=== PATIENT | female | born 1985 | race Caucasian/White ===

== ENCOUNTER → 2016-09-05 | Outpatient (CLI) | payer BC ==
--- NOTE | 2016-09-05 13:59 | RADIOLOGY REPORT (SQ) ---
EXAM DESCRIPTION: CHEST PA/LATERAL COMPLETED DATE/TIME: 09/05/2016 1:00 pm REASON FOR STUDY: NONSPECIFIC REACTION TO SKIN TEST W/O ACTIVE TUBER COMPARISON: None. EXAM PARAMETERS: NUMBER OF VIEWS: two views TECHNIQUE: Digital Frontal and Lateral radiographic views of the chest acquired. RADIATION DOSE: NA LIMITATIONS: none FINDINGS: LUNGS AND PLEURA: No opacities, masses or pneumothorax. No pleural effusion. MEDIASTINUM AND HILAR STRUCTURES: No masses or contour abnormalities. HEART AND VASCULAR STRUCTURES: Heart normal size. No evidence for failure. BONES: No acute findings. HARDWARE: None in the chest. OTHER: No other significant finding. IMPRESSION: NO SIGNIFICANT RADIOGRAPHIC FINDING IN THE CHEST. TECHNICAL DOCUMENTATION: JOB ID: [id number] [employer]- All Rights Reserved
== END ==
LOC: OD 12:41
PROVIDERS: ATTEND Physician Assistant
DX: R76.11 Nonspecific reaction to tuberculin skin test without active tuberculosis (principal)
CPT/HCPCS: 71020

== ENCOUNTER 2018-07-21 14:44 | Outpatient (CLI) | payer BC ==
--- NOTE | 2018-07-21 15:23 | Non Stress Test Report ---
Non Stress Test Datetime Report Generated by CPN: 07/21/2018 15:22 DEMOGRAPHIC EGA NST: 35.3 INDICATION Indication for Study: Ordered by Provider; Other VITAL SIGNS Temperature - NST: 98.1 Pulse - NST: 76 RESP - NST: 15 MONITORING Time on Monitor: 07/21/2018 14:52 Time off Monitor: 07/21/2018 15:12 NST Duration: 20 NST INTERVENTIONS NST Interventions: PO Hydration Physician Notified NST: C. Oquendo, CNM BABY A: [id number] BABY A Movement : Present Contraction Frequency : x1 Accelerations : 15X15 Decelerations : None Variability : Moderate 6-25bpm NST Review: Meets Criteria for Reactive NST NST Review and Verified By : kathleen arechiga rn NST Results: Reactive NST REPORT Report Trigger: Send Report
== END 2018-07-21 15:22 | disposition home or self-care (01) ==
LOC: LC 14:44
PROVIDERS: ATTEND Obstetrics & Gynecology Gynecology
PROC: 4A1HXCZ Monitoring of Products of Conception, Cardiac Rate, External Approach (ICD-10-PCS; principal; 2018-07-21)
DX: O24.415 Gestational diabetes mellitus in pregnancy, controlled by oral hypoglycemic drugs (principal); Z3A.35 35 weeks gestation of pregnancy
CPT/HCPCS: 59025; 82962

== ENCOUNTER 2018-08-15 16:50 | Inpatient (IN) | payer BC ==
[2018-08-15 19:23] LABS: URINE AMPHETAMINES SCREEN NEGATIVE; URINE BARBITURATES SCREEN NEGATIVE; URINE BENZODIAZEPINES SCREEN NEGATIVE; URINE COCAINE SCREEN NEGATIVE; URINE MARIJUANA (THC) SCREEN NEGATIVE; URINE METHADONE SCREEN NEGATIVE; URINE PHENCYCLIDINE SCREEN NEGATIVE
[2018-08-15 19:35] LABS: APPEARANCE,URINE CLEAR; COLOR,URINE LIGHT YELLOW
[2018-08-15 19:36] LABS: BILIRUBIN,URINE NEGATIVE (NEGATIVE); GLUCOSE, URINE NEGATIVE (NEGATIVE); KETONES,URINE NEGATIVE (NEGATIVE); LEUKOCYTE ESTERASE,URINE NEGATIVE (NEGATIVE); NITRITE,URINE NEGATIVE (NEGATIVE); PROTEIN,URINE NEGATIVE (NEGATIVE); UROBILINOGEN,URINE NEGATIVE mg/dL (<2.0)
[2018-08-15] MEDS ORDERED: HYDROXYZINE PAMOATE 50 MG CAPSULE ONE (20:13)
[2018-08-15] MEDS ORDERED: GLYBURIDE 5 MG TABLET ONE (20:13)
[2018-08-15] MEDS: RINGERS SOLUTION,LACTATED 1,000 ML IV PRN ×2 (21:00→22:08)
[2018-08-15 21:08] LABS: ABSOLUTE BASOPHILS # (AUTO) 0.1 10^3/uL (0.0-0.2); ABSOLUTE LYMPHOCYTES (AUTO) 1.9 10^3/uL (0.5-4.7); ABSOLUTE MONOCYTES (AUTO) 0.6 10^3/uL (0.1-1.4); ABSOLUTE NEUT (AUTO) 9.6 10^3/uL (1.7-8.2); BASOPHILS % (AUTO) 0.5 % (0-2); EOSINOPHILS % (AUTO) 0.3 % (0-6); HEMATOCRIT 36.7 % (36.0-47.0); HEMOGLOBIN 12.4 g/dL (12.0-15.5); LYMPHOCYTES % (AUTO) 15.4 % (13-45); MEAN CORPUSCULAR HEMOGLOBIN 29.4 pg (27.0-33.4); MEAN CORPUSCULAR HGB CONC 33.7 g/dL (32.0-36.0); MEAN CORPUSCULAR VOLUME 87 fl (80-97); MONOCYTES % (AUTO) 5.1 % (3-13); PLATELET COUNT 216 10^3/uL (150-450); RED BLOOD COUNT 4.21 10^6/uL (3.72-5.28); SEGMENTED NEUTROPHILS % (AUTO) 78.7 % (42-78); TOTAL CELLS COUNTED % (AUTO) 100 %; WHITE BLOOD COUNT 12.2 10^3/uL (4.0-10.5)
[2018-08-15] MEDS ORDERED: EPHEDRINE SULFATE INJ 50 MG/1 ML AMPULE ONE (21:16)
[2018-08-15] MEDS ORDERED: MISOPROSTOL 0.2 MG TABLET ONE (21:16)
[2018-08-15] MEDS ORDERED: OXYTOCIN 10 UNIT/ML VIAL ONE (21:16)
[2018-08-15] MEDS ORDERED: LIDOCAINE 1% INJ-PF (10 MG/ML) 30 ML SDV ONE (21:17)
[2018-08-15] MEDS ORDERED: OXYTOCIN/NORMAL SALINE 20 UNIT/1,000 ML RTUINJ ONE (21:17)
[2018-08-15] MEDS ORDERED: FENTANYL/BUPIVACAINE/NS/PF 300 MCG/150 ML RTUINJ EPI ONE (21:17)
[2018-08-15] MEDS ORDERED: MAG HYDROX/AL HYDROX/SIMETH SUSP 30 ML UDCUP ONE (21:17)
[2018-08-15] MEDS ORDERED: BUPIVACAINE HCL 0.25 % INJ/PF (2.5 MG/1 ML) 30 ML VIAL ONE (21:17)
--- NOTE | 2018-08-16 01:33 | Admission Physical ---
Datetime Report Generated by CPN: 08/16/2018 01:32 CURRENT ADMISSION Chief Complaint: Uterine Contractions Indication for Induction: Not Applicable Admit Impression : Term, Intrauterine ; Active Labor Admit Plan: Admit to Unit; Initiate Labor Protocol ALLERGIES Medication Allergies: No Medication Allergies: No Known Allergies (08/15/2018) Latex: No Latex Allergies Food Allergies: no Environmental Allergies: no OBSTETRICAL HISTORY EDC: 08/22/2018 00:00 : 2 Para: 1 Term: 1 : 0 SAB: 0 IAB: 0 Ectopic: 0 Livin Cesareans: 0 VBACs: 0 Multiple Births: 0 Gestational Diabetes: Yes Rh Sensitization: No Incompetent Cervix: No DOMITILA: No Infertility: No ART Treatment: No Uterine Anomaly: No IUGR: No Hx Previous C/S: No Macrosomia: No Hx Loss/Stillborn: No PIH: No Hx : No Placenta Previa/Abruption: No Depression/PP Depression: No PTL/PROM: No Post Hemorrhage: No Current Procedures: Ultrasound Obstetrical History Comments: G1- 2014 39.2 G2- current, GDM on glyburide, noncompliant SEE RECORDS Alcohol: No Marijuana : No Cocaine: No Other Illicit Drugs: No Cigarettes: Never Smoker. [id number] MEDICAL HISTORY Diabetes: Yes Diabetes Type: Gestational Diabetes Blood Transfusion: No Pulmonary Disease (Asthma, TB): No Breast Disease: No Hypertension: No [employer] Surgery: No Heart Disease: No Hosp/Surgery: Yes Autoimmune Disorder: No Anesthetic Complications: No Kidney Disease: No Abnormal Pap Smear: No Neuro/Epilepsy: No Psychiatric Disorders: No Other Medical Diseases: No Hepatitis/Liver Disease: No Significant Family History: No Varicosities/Phlebitis: No Thyroid Dysfunction: No Medical History Comments: cholecystectomy 2007, INFECTIOUS HISTORY Gonorrhea: No Genital Herpes: No Chlamydia: No Tuberculosis: No Syphilis: No Hepatitis: No HIV/AIDS Exposure: No Rash or Viral Illness: No HPV: No PHYSICAL EXAM General: Normal HEENT: Normal Neurologic: Normal Thyroid: Normal Heart: Normal Lungs: Normal Breast: Normal Back: Normal Abdomen: Normal Genitourinary Exam: Normal Extremities: Normal DTRs: Normal Pelvic Type: Adequate Vital Signs: Reviewed VAGINAL EXAM Dilatation: 5 Effacement: 75 Station: -2 MEMBRANES Pooling: Negative Membranes: Intact FETUS A EGA: 39.0 Monitoring: External US FHR- Baseline: 130 Variability: Moderate 6-25bpm Accelerations: 15X15 Decelerations: None FHR Category: Category I Estimated Weight (gm): 3400 Presentation: Vertex PLANS FOR LABOR AND DELIVERY Labor and Delivery: None Pain Management: Epidural Feeding Preference: Both Benefit of Breast Feed Discussed: Yes Circumcision: N/A INFORMED CONSENT Signature: with User ID: [email or web address]
[2018-08-16] MEDS ORDERED: MEASLES,MUMPS&RUBELLA VACC/PF 0.5 ML VIAL SUBCUT PRN (01:59)
[2018-08-16] MEDS ORDERED: ZOLPIDEM TARTRATE 5 MG TABLET PO PRN (01:59)
[2018-08-16] MEDS ORDERED: BENZOCAINE/MENTHOL AEROSOL SPRAY 56 ML TOP PRN (01:59)
[2018-08-16] MEDS ORDERED: DIBUCAINE 1% OINTMENT 56 GM TP PRN (01:59)
[2018-08-16] MEDS ORDERED: ACETAMINOPHEN WITH CODEINE #3 TABLET PO PRN (01:59)
[2018-08-16] MEDS ORDERED: OXYTOCIN/NORMAL SALINE 20 UNIT/1,000 ML RTUINJ IV PRN (01:59)
[2018-08-16] MEDS ORDERED: DIPH/PERTUSS(ACELL)/TETANUS VAC/PF 0.5 ML SYR (>=10YO) IM PRN (01:59)
[2018-08-16] MEDS ORDERED: IBUPROFEN 800 MG TABLET ONE (04:11)
--- NOTE | 2018-08-16 04:50 | Delivery Summary ---
Del Sum A-C Datetime Report Generated by CPN: 08/16/2018 04:49 DELIVERY PERSONNEL DELIVERY PERSONNEL: [id number] Delivery Doctor:: Susanne Azar MD Labor and Delivery Nurse:: Bell Ayala RNtorque tester Nurse:: Deborah Meehandiego, RN MATERNAL INFORMATION Delivery Anesthesia: Epidural Medications After Delivery: Cytotec 1000mcg Per Rectum/Vagina Estimated Blood Loss (ml): 200 Delivery QBL: 200 Maternal Complications: None; Other Complication Details: GDMA2 LABOR SUMMARY EDC: 08/22/2018 00:00 No. Babies in Womb: 1 Attempted: No Labor Anesthesia: Epidural LABOR INFORMATION Reason for Induction: Not Applicable Onset of Labor: 08/15/2018 20:40 Complete Dilatation: 08/16/2018 01:28 Oxytocin: N/A Group B Beta Strep: negative Steroids Given: None Reason Steroids Not Administered: Not Applicable MEMBRANES Membranes Rupture Method: Artificial Rupture of Membranes: 08/16/2018 01:28 Length of Rupture (hr): 0.32 Amniotic Fluid Color: Clear Amniotic Fluid Amount: Large Amniotic Fluid Odor: Normal STAGES OF LABOR Stage 1 hr: 4 Stage 1 min: 48 Stage 2 hr: 0 Stage 2 min: 19 Stage 3 hr: 0 Stage 3 min: 3 Total Time in Labor hr: 5 Total Time in Labor min: 10 VAGINAL DELIVERY Episiotomy: None Laceration #1: Perineal Laceration Extension #1: Second Degree Laceration Repair: Yes Laceration Repair Note: 2-0 chromic in normal fashion Sponge Count Correct: N/A Sharps Count Correct: N/A CSECTION DELIVERY Primary Indication: N/A Secondary Indication: N/A CSection Incision: N/A BABY A INFORMATION Delivery Date/Time: 08/16/2018 01:47 Method of Delivery: Vaginal Born in Route : No : N/A Forceps: N/A Vacuum Extraction: N/A Shoulder Dystocia : No PRESENTATION/POSITION BABY A Presentation: Cephalic Cephalic Presentation: Vertex Vertex Position: Left Occipital Anterior Breech Presentation: N/A PLACENTA INFORMATION BABY A Placenta Delivery Time : 08/16/2018 01:50 Placenta Method of Delivery: Spontaneous Placenta Status: Delivered SCORES BABY A Heart Rate 1 min: >100 bpm Resp Effort 1 min: Good Cry Reflex Irritability 1 min: Cough or Sneeze or Pulls Away Muscle Tone 1 min: Active Motion Color 1 min: Body [place], Extremities Blue Resuscitation Effort 1 min: Tactile Stimulation SCORE 1 MIN: 9 Heart Rate 5 min: >100 bpm Resp Effort 5 min: Good Cry Reflex Irritability 5 min: Cough or Sneeze or Pulls Away Muscle Tone 5 min: Active Motion Color 5 min: Body [place], Extremities Blue Resuscitation Effort 5 min: Tactile Stimulation SCORE 5 MIN: 9 INFANT INFORMATION BABY A Gestational Age at Delivery: 39.1 Gestational Status: Full Term- 39- 40.6 Weeks Outcome : Liveborn Infant Condition : Stable Sex: Female IDENTIFICATION BABY A Verification Date/Time: 08/16/2018 02:13 ID Band Number: [id number] Mother's Name Verified: Yes Infant RN Verifying : rn haley Additional Verifying Personnel: rn lynseyman WEIGHT/LENGTH BABY A Birthweight (gm): 3907 Infant Weight (lb): 8 Weight (oz): 10 Infant Length (in): 21.00 Infant Length (cm): 53.34 CORD INFORMATION BABY A No. Cord Vessels: 3 Nuchal Cord : N/A Cord Blood Taken: Yes-For Storage (Mom's Blood type +) Infant Suction: Mouth ASSESSMENT BABY A Complications: None Physical Findings at Delivery: Within Normal Limits Infant Respirations: Appears Normal Skin to Skin: Yes City Assessor/ALS Called : No Care By: DANNIELLE Ayala Transferred To: Remains with Mother SIGNATURES Signature: with User ID: [email or web address]
[2018-08-16] MEDS: PRENATAL VITAMIN W DHA CAPSULE PO SCH (09:28)
[2018-08-16] MEDS: SENNOSIDES/DOCUSATE 8.6-50 MG 1 EACH TABLET PO SCH (09:29)
[2018-08-16] MEDS: IBUPROFEN 800 MG TABLET PO SCH ×3 (09:29→22:00)
[2018-08-16] MEDS: DOCUSATE SODIUM 100 MG CAPSULE PO SCH ×2 (09:29→17:21)
[2018-08-16] MEDS: FERROUS SULFATE 325 MG TABLET PO SCH ×2 (09:29→17:22)
--- NOTE | 2018-08-16 10:58 | PDOC PROGRESS REPORT ---
Subjective-OB Progress Note for:: 08/16/18 Subjective: Pt resting in bed with baby. C/O headache this am. Reports regular diet, voiding without difficulty and normal bleeding. Physical Exam (OB) Vital Signs: Temp Pulse Resp BP Pulse Ox 98.8 F 71 18 96/42 L 98 08/16/18 07:25 08/16/18 07:25 08/16/18 07:25 08/16/18 07:25 08/16/18 07:25 Intake & Output 08/15/18 08/16/18 08/17/18 06:59 06:59 06:59 Intake Total 142 Balance 142 Weight 100.1 kg - Lochia Lochia Amount: Scant < 10 ml Lochia Color: Rubra/Red - Abdomen Description: Soft, Round Fundal Description: Firm Fundal Height: u/u - u/2 Objective-Diagnostic Laboratory: 08/15/18 20:52 08/15/18 08/15/18 08/15/18 18:45 20:52 20:52 WBC 12.2 H RBC 4.21 Hgb 12.4 Hct 36.7 MCV 87 MCH 29.4 MCHC 33.7 RDW 14.0 Plt Count 216 Seg Neutrophils % 78.7 H Lymphocytes % 15.4 Monocytes % 5.1 Eosinophils % 0.3 Basophils % 0.5 Absolute Neutrophils 9.6 H Absolute Lymphocytes 1.9 Absolute Monocytes 0.6 Absolute Eosinophils 0.0 Absolute Basophils 0.1 Urine Color LIGHT YELLOW Urine Appearance CLEAR Urine pH 6.0 Ur Specific [place] 1.010 Urine Protein NEGATIVE Urine Glucose (UA) NEGATIVE Urine Ketones NEGATIVE Urine Blood NEGATIVE Urine Nitrite NEGATIVE Ur Leukocyte Esterase NEGATIVE Blood Type A POSITIVE Antibody Screen NEGATIVE Assessment and Plan(PN) - Assessment and Plan (1) Delivery normal Is this a current diagnosis for this admission?: Yes (2) Gestational diabetes Qualifiers: Gestational diabetes mellitus control: diet-controlled Is this a current diagnosis for this admission?: Yes - Time Spent with Patient Time with patient: Less than 15 minutes Medications reviewed and adjusted accordingly: Yes - Disposition Anticipated Discharge: Home Within: within 24 hours
[2018-08-16] MEDS ORDERED: BUTALB/ACETAMINOPHEN/CAFFEINE 1 TAB EACH PO ONE (12:30)
[2018-08-16] MEDS: ACETAMINOPHEN WITH CODEINE #3 TABLET PO PRN ×2 (17:21→22:00)
[2018-08-17] MEDS: IBUPROFEN 800 MG TABLET PO SCH ×3 (06:49→22:00)
[2018-08-17 07:23] LABS: HEMATOCRIT 30.7 % (36.0-47.0); HEMOGLOBIN 10.4 g/dL (12.0-15.5); MEAN CORPUSCULAR HEMOGLOBIN 29.6 pg (27.0-33.4); MEAN CORPUSCULAR HGB CONC 33.7 g/dL (32.0-36.0); MEAN CORPUSCULAR VOLUME 88 fl (80-97); PLATELET COUNT 199 10^3/uL (150-450); RED CELL DISTRIBUTION WIDTH 13.7 % (11.5-14.0); WHITE BLOOD COUNT 16.4 10^3/uL (4.0-10.5)
--- NOTE | 2018-08-17 09:08 | PDOC DISCHARGE SUMMARY ---
Final Diagnosis Discharge Date: 08/17/18 - Final Diagnosis (1) Delivery normal Is this a current diagnosis for this admission?: Yes (2) Gestational diabetes Is this a current diagnosis for this admission?: Yes Discharge Data - Discharge Medication Home Medications: Prenat 115/Iron Fum/Folic/Dss [ 19 Tablet] 1 tab PO DAILY 03/28/14 Glyburide [Diabeta 2.5 Mg Tablet] 2.5 mg PO QAM 07/21/18 Glyburide [Diabeta 5 mg Tablet] 5 mg PO QPM 07/21/18 Reason(s) for Admission: Onset of Labor, Gestional Diabetes Procedures: NST Intrapartum Procedure(s): Spontaneous Vaginal Delivery Complication(s): Laceration-Perineal Laceration-Degree: 2nd - Diagnosis Test Laboratory: Temp Pulse Resp BP Pulse Ox 97.9 F 70 16 107/66 93 08/16/18 19:31 08/16/18 19:31 08/16/18 19:31 08/16/18 19:31 08/16/18 19:31 08/15/18 08/15/18 08/17/18 18:45 20:52 07:02 RBC 4.21 3.50 L Hgb 12.4 10.4 L Hct 36.7 30.7 L Urine Opiates Screen NEGATIVE - Discharge information/Instructions Discharge Activity: Balance Activity w/Rest, Pelvic Rest Discharge Diet: Regular Disposition: HOME, SELF-CARE Follow up with: [facility] in: 4, Weeks
[2018-08-17] MEDS: FERROUS SULFATE 325 MG TABLET PO SCH ×2 (10:15→17:45)
[2018-08-17] MEDS: SENNOSIDES/DOCUSATE 8.6-50 MG 1 EACH TABLET PO SCH (10:15)
[2018-08-17] MEDS: DOCUSATE SODIUM 100 MG CAPSULE PO SCH ×2 (10:15→17:45)
[2018-08-17] MEDS: PRENATAL VITAMIN W DHA CAPSULE PO SCH (10:15)
[2018-08-17] MEDS: ACETAMINOPHEN WITH CODEINE #3 TABLET PO PRN (21:11)
[2018-08-18] MEDS: IBUPROFEN 800 MG TABLET PO SCH ×2 (05:59→13:33)
[2018-08-18] MEDS: PRENATAL VITAMIN W DHA CAPSULE PO SCH (09:31)
[2018-08-18] MEDS: FERROUS SULFATE 325 MG TABLET PO SCH (09:31)
[2018-08-18] MEDS: DOCUSATE SODIUM 100 MG CAPSULE PO SCH (09:31)
[2018-08-18] MEDS: SENNOSIDES/DOCUSATE 8.6-50 MG 1 EACH TABLET PO SCH (09:31)
[2018-08-18 10:20] VITALS: BP 104/64
--- NOTE | 2018-08-18 10:26 | Progress Note ---
Provider Note Provider Note: has discharge summary from yesterday, was not discharged. doing well. will discharge today.
== END 2018-08-18 13:30 | disposition home or self-care (01) | DRG 807 ==
LOC: LC 16:50 → LR 20:49 → 2S 08-16 04:28
PROVIDERS: ADMIT Obstetrics & Gynecology; ATTEND Obstetrics & Gynecology
PROC: 4A1HXCZ Monitoring of Products of Conception, Cardiac Rate, External Approach (ICD-10-PCS; 2018-08-15)
PROC: 10E0XZZ Delivery of Products of Conception, External Approach (ICD-10-PCS; principal; 2018-08-16)
PROC: 0KQM0ZZ Repair Perineum Muscle, Open Approach (ICD-10-PCS; 2018-08-16)
PROC: 10907ZC Drainage of Amniotic Fluid, Therapeutic from Products of Conception, Via Natural or Artificial Opening (ICD-10-PCS; 2018-08-16)
DX: O24.420 Gestational diabetes mellitus in childbirth, diet controlled (principal); Z37.0 Single live birth; O70.1 Second degree perineal laceration during delivery; Z3A.39 39 weeks gestation of pregnancy; Z91.19 Patient's noncompliance with other medical treatment and regimen
CPT/HCPCS: 36415; 59025; 80307; 81005; 85025; 85027; 86592; 86850; 86900; 86901; J2590; J3010; J3490

== ENCOUNTER 2018-10-23 11:23 | Day surgery (SDC) | payer BC ==
[2018-10-22 10:30] LABS: HEMATOCRIT 38.3 % (36.0-47.0); HEMOGLOBIN 12.9 g/dL (12.0-15.5); MEAN CORPUSCULAR HEMOGLOBIN 28.7 pg (27.0-33.4); MEAN CORPUSCULAR HGB CONC 33.8 g/dL (32.0-36.0); MEAN CORPUSCULAR VOLUME 85 fl (80-97); PLATELET COUNT 228 10^3/uL (150-450); RED BLOOD COUNT 4.51 10^6/uL (3.72-5.28); RED CELL DISTRIBUTION WIDTH 13.7 % (11.5-14.0); WHITE BLOOD COUNT 4.8 10^3/uL (4.0-10.5)
[2018-10-22 10:30] LABS: APPEARANCE,URINE CLEAR; BILIRUBIN,URINE NEGATIVE (NEGATIVE); COLOR,URINE YELLOW; GLUCOSE, URINE NEGATIVE (NEGATIVE); KETONES,URINE NEGATIVE (NEGATIVE); LEUKOCYTE ESTERASE,URINE NEGATIVE (NEGATIVE); NITRITE,URINE NEGATIVE (NEGATIVE); PROTEIN,URINE NEGATIVE (NEGATIVE); URINE SPECIFIC GRAVITY 1.021; UROBILINOGEN,URINE NEGATIVE mg/dL (<2.0)
[~2018-10-23 11:23] MED LIST: FENTANYL CITRATE INJ/PF 100 MCG/2 ML AMPUL ONE; LACTATED RINGERS 1000 ML IV PRN; LIDOCAINE 0.5% INJ-PF (5 MG/ML) 50 ML SDV SUBCUT PRN; MIDAZOLAM 2 MG/2 ML INJ ONE; PROPOFOL INJ 200 MG/20 ML VIAL IV ONE
[2018-10-23] MEDS ORDERED: FENTANYL CITRATE INJ/PF 100 MCG/2 ML AMPUL ONE (12:22)
[2018-10-23] MEDS ORDERED: MIDAZOLAM 2 MG/2 ML INJ ONE (12:25)
[2018-10-23] MEDS ORDERED: ONDANSETRON HCL INJ/PF 4 MG/2 ML SDV ONE ×2 (12:25→14:25)
[2018-10-23] MEDS ORDERED: MORPHINE SULFATE 10 MG/ML INJ IV PRN (13:12)
[2018-10-23] MEDS ORDERED: MEPERIDINE HCL/PF INJ 25 MG/1 ML DISP.SYRIN IV PRN (13:12)
[2018-10-23] MEDS ORDERED: DIPHENHYDRAMINE HCL 50 MG/ML VIAL IV PRN (13:12)
[2018-10-23] MEDS ORDERED: ONDANSETRON HCL INJ/PF 4 MG/2 ML SDV IV PRN (13:12)
[2018-10-23] MEDS ORDERED: PROMETHAZINE HCL INJ 25 MG/1 ML VIAL IV PRN (13:12)
[2018-10-23] MEDS ORDERED: FENTANYL CITRATE INJ/PF 100 MCG/2 ML AMPUL IV PRN ×3 (13:12)
[2018-10-23] MEDS ORDERED: OXYCODONE-ACETAMINOPHEN 5-325 MG TABLET PO PRN ×4 (13:12→14:24)
--- NOTE | 2018-10-23 13:58 | Operative Report ---
Operative Report DATE OF SURGERY: 10/23/18 PREOPERATIVE DIAGNOSIS: undesired fertility POSTOPERATIVE DIAGNOSIS: same OPERATION: Laparoscopic tubal cauterization SURGEON: THANG GILL 1ST BAKERY PASTRY INTERNSHIP: GRACIELA ARMSTRONG ANESTHESIA: GA TISSUE REMOVED OR ALTERED: fallopian tubes COMPLICATIONS: none ESTIMATED BLOOD LOSS: 10 cc INTRAOPERATIVE FINDINGS: normal uterus tubes and ovaries PROCEDURE: Patient was taken to the operating room prepared and draped in normal sterile fashion in dorsolithotomy position. Under sterile conditions and in and out cath was performed of approximately 30 cc of clear urine. A sterile speculum was then placed into the vagina the cervix was grasped with a single-tooth tenaculum on the anterior lip. A Hulka clamp was placed to the cervix for uterine manipulation without difficulty. The tenaculum and speculum were then removed. Change in attention was turned to the upper portion of the case where the umbilical skin incision was made. A varies needle was introduced through this incision and the abdomen was inflated with approximately 2 L of CO2 gas. Needle was removed and a 5 mm port was placed through the incision. The camera was introduced and the patient was placed in Trendelenburg with the above findings noted. Another 5 mm port was placed in the left lower quadrant. A blunt probe was introduced through this port and the bowel was swept away. A Kleppinger was then introduced through that port and beginning with the left fallopian tube the left fallopian tube was cauterized with approximately 3-1/2 cm. The occlusion was felt to be more than adequate. Repeated on the right fallopian tube without difficulty. Then removed and the abdomen was deflated through the umbilical port. Port sites were closed with 4-0 Vicryl. To recovery stable condition sponge lap and needle counts were correct x2..
[2018-10-23] MEDS ORDERED: IBUPROFEN 800 MG TABLET PO PRN (14:24)
[2018-10-23] MEDS ORDERED: DEXAMETHASONE SOD PHOSPHATE INJ 4 MG/1 ML VIAL ONE (14:25)
[2018-10-23] MEDS ORDERED: SUCCINYLCHOLINE CHLORIDE INJ 200 MG/10 ML VIAL ONE (14:25)
[2018-10-23] MEDS ORDERED: KETOROLAC TROMETHAMINE 60 MG/2 ML SDV ONE (14:25)
[2018-10-23 15:38] VITALS: BP 135/67
[2018-10-24] MEDS ORDERED: MORPHINE SULFATE 10 MG/ML INJ IM PRN (05:00)
== END 2018-10-23 14:39 | disposition home or self-care (01) ==
LOC: OROUT 11:23
PROVIDERS: ATTEND Obstetrics & Gynecology
DX: Z30.2 Encounter for sterilization (principal); Z32.02 Encounter for pregnancy test, result negative; D64.9 Anemia, unspecified
CPT/HCPCS: 36415; 85027; 81005; 81025; 00851; 58670; J2250; J1100; J1885; J3010; J0330; J2405; J2704; 851